=== PATIENT | male | born 1995 | race Caucasian/White ===

== ENCOUNTER 2016-09-25 02:04 | Emergency (ER) | payer OTHER ==
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
== END 2016-09-25 05:45 | disposition disaster alternative care site (69) ==
LOC: GACC 02:04
DX: S06.9X9A Unspecified intracranial injury with loss of consciousness of unspecified duration, initial encounter (principal); Z98.890 Other specified postprocedural states; Y04.0XXA Assault by unarmed brawl or fight, initial encounter